=== PATIENT | female | born 1960 | race Caucasian/White ===

== ENCOUNTER → 2022-01-09 | Day surgery (SDC) | payer OTHER ==
[~2022-01-09] VITALS: Ht 175.3 cm; Wt 72.6 kg
[~2022-01-09] MED LIST: ADVIL PM CAPLE1 EACH PO; MOBIC7.5 MG PO
== END | disposition home or self-care (01) ==
LOC: FAS 06:07
DX: M16.11 Unilateral primary osteoarthritis, right hip (principal)
CPT/HCPCS: 76000; J1040; J1100; J1885; J2001; J2250; J2405; J2704; J3010; J7120; Q9967